=== PATIENT | female | born 2000 | race Caucasian/White ===

== ENCOUNTER 2019-06-28 17:07 | Emergency (ER) | payer OTHER ==
[~2019-06-28] VITALS: Ht 157.5 cm; Wt 68.0 kg
[2019-06-28 17:40] LABS: URINE BILIRUBIN NEGATIVE (Negative); URINE BLOOD NEGATIVE (Negative); URINE COLOR YELLOW; URINE GLUCOSE-RANDOM NEGATIVE (Negative); URINE KETONES NEGATIVE (Negative); URINE NITRITE-REFLEX NEGATIVE (Negative); URINE PROTEIN NEGATIVE (Negative); URINE SPECIFIC GRAVITY 1.025 (1.005-1.030); URINE UROBILINOGEN 0.2 E.U./dl (0.2-1.0)
[2019-06-28 17:41] LABS: URINE CLARITY HAZY; URINE LEUKOCYTES-REFLEX 2+ (Negative)
[2019-06-28 17:57] LABS: SQUAMOUS >10 Many /LPF (0-3)
[2019-06-28 17:58] LABS: BACTERIA-REFLEX 1-9 Few /HPF (None Seen); URINE RBC 3-10 Few /HPF (0-2); URINE WBC-REFLEX 6-15 Few /HPF (0-5)
[2019-06-28 17:59] LABS: CASTS None Seen /LPF (None Seen); CRYSTALS None Seen /LPF (None Seen)
[2019-06-28] MEDS ORDERED: DIFLUCAN150 MG PO (18:20)
[2019-06-28 18:29] VITALS: BP 108/76
== END 2019-06-28 18:30 | disposition home or self-care (01) ==
LOC: M.ERS 17:07
PROVIDERS: Nurse Practitioner Family
DX: B37.3 Candidiasis of vulva and vagina (principal)

== ENCOUNTER 2019-10-14 17:00 | Emergency (ER) | payer OTHER ==
[~2019-10-14] VITALS: Ht 157.5 cm; Wt 59.0 kg
[~2019-10-14 17:00] MED LIST: DIFLUCAN150 MG PO
[2019-10-14] MEDS ORDERED: TYLENOL WITH CO1 TA1 PO (19:14)
[2019-10-14] MEDS ORDERED: LIDODERM1 EACH TRANSDERM (19:21)
[2019-10-14 19:50] VITALS: BP 112/64
--- NOTE | 2019-10-15 14:32 | EKG ---
[place] [address] ELECTROCARDIOGRAM REPORT Name: ENRICO NICHOLSON Room: [facility]#: [id number] Admission: 10/14/19 Attend Phys: Discharge: 10/14/19 Date of : 89 Report #: [id number] THIS REPORT FOR: //name// [facility] ED Test Date: 2019-10-14 Test Time: 17:08:29 Pat Name: ENRICO NICHOLSON Department: Room: Gender: F [employer]: KHOI : 2000 Requested By: Mihaela Turner Order Number: [id number] Reading MD: Gilson Dixon Measurements Intervals Holmen Rate: 75 P: 12 DE: 192 QRS: 48 QRSD: 62 T: 54 QT: 359 QTc: 401 Interpretive Statements Sinus rhythm No previous ECG available for comparison Electronically Signed On 10-15-2019 14:32:08 [employer] by Gilson Dixon [email or web address] <ELECTRONICALLY SIGNED> By: Gilson Dixon MD, [facility] 10/15/19 1432 1708 1708 Gilson Dixon MD, FACC /EPI
== END 2019-10-14 19:50 | disposition home or self-care (01) ==
LOC: M.ERS 17:00
DX: M54.6 Pain in thoracic spine (principal)

== ENCOUNTER 2019-12-09 16:42 | Emergency (ER) | payer OTHER ==
[~2019-12-09] VITALS: Ht 157.5 cm; Wt 59.0 kg
[~2019-12-09 16:42] MED LIST changes: +LIDODERM1 EACH TRANSDERM; +TYLENOL WITH CO1 TA1 PO
[2019-12-09 17:45] LABS: INFLUENZA A ANTIGEN Negative (Negative); INFLUENZA B ANTIGEN Negative (Negative)
[2019-12-09 18:29] VITALS: BP 128/72
== END 2019-12-09 18:29 | disposition home or self-care (01) ==
LOC: M.ERS 16:42
PROVIDERS: Nurse Practitioner Family
DX: J02.9 Acute pharyngitis, unspecified (principal)

== ENCOUNTER 2020-02-15 17:24 | Emergency (ER) | payer OTHER ==
[~2020-02-15] VITALS: Ht 157.5 cm; Wt 68.0 kg
[2020-02-15] MEDS ORDERED: KEFLEX500 M1 PO (17:40)
[2020-02-15 17:49] VITALS: BP 123/76
== END 2020-02-15 17:50 | disposition home or self-care (01) ==
LOC: M.ERS 17:24
DX: N64.4 Mastodynia (principal)

== ENCOUNTER 2021-09-12 18:41 | Emergency (ER) | payer OTHER ==
[~2021-09-12] VITALS: Ht 157.5 cm; Wt 63.5 kg
[~2021-09-12 18:41] MED LIST changes: +KEFLEX500 M1 PO
[2021-09-12 19:01] VITALS: BP 114/76
[2021-09-12] MEDS ORDERED: CEPHALEXIN500 MG PO (19:10)
== END 2021-09-12 19:30 | disposition home or self-care (01) ==
LOC: M.ERS 18:41
DX: N61.0 Mastitis without abscess (principal)